=== PATIENT | female | born 2000 | race Hispanic/Latino ===

== ENCOUNTER → 2020-09-27 12:53 | Outpatient (CLI) | payer OTHER, MEDICAID, SELFPAY ==
[2020-09-27 13:32] LABS: Appearance Urine UA CLOUDY; Bilirubin Urine UA NEGATIVE (NEGATIVE); Color Urine UA YELLOW; Glucose Urine UA NEGATIVE (Negative); Ketones Urine UA NEGATIVE (NEGATIVE); Leukocyte Esterase Urine UA NEGATIVE (NEGATIVE); Nitrite Urine UA NEGATIVE (Negative); Occult Blood Urine UA TRACE-LYSED (Negative); Protein Urine UA NEGATIVE (Negative); Urobilinogen Urine UA 0.2 E.U./dL (0.2)
[2020-09-27 13:33] LABS: Add Manual Diff / Slide Review NO; Basophils Absolute Auto 0 /uL (0-100); Basophils Percent Auto 0.3 % (0-2); Eosinophils Absolute Auto 0 /uL (0-450); Eosinophils Percent Auto 0.4 % (2-4); Hematocrit 37.2 % (36-46); Hemoglobin 12.1 g/dL (12.0-16.0); Lymphocytes Absolute Auto 2000 /uL (1100-4500); Lymphocytes Percent Auto 16.7 % (25-40); Mean Corpuscular HGB Conc 32.4 % (30-36); Mean Corpuscular Hemoglobin 27.1 PG (26-34); Mean Corpuscular Volume 83.6 fL (80-100); Monocytes Absolute Auto 600 /uL (0-900); Monocytes Percent Auto 4.9 % (3-14); Neutrophils Absolute Auto 9300 /uL (1500-7000); Neutrophils Percent Auto 77.7 % (50-75); Platelet Count 465 X10^3/uL (150-400); Red Blood Cell Count 4.46 X10^6/uL (4.0-5.2); Red Cell Distribution Width 13.2 % (11.6-14.8)
[2020-09-27 16:30] LABS: HIV 1 & 2 Ab/Ag 4th Gen Combo NEGATIVE (NEGATIVE); Hep C Virus Ab w/Reflex Quant NEGATIVE s/c (NEGATIVE); Hepatitis B Surface Antigen NEGATIVE s/c (NEGATIVE); Rubella Antibody IgG 17.9 IU/mL (>15)
[2020-09-28 05:40] LABS: RPR Screen Non Reactive (Non Reactive)
[2020-09-28 08:28] LABS: Varicella IgG Antibody <135 index (Immune >165)
== END ==
PROVIDERS: PCP Family Medicine; Referring Provider Family Medicine; Visit Provider Family Medicine
DX: Z34.01 Encounter for supervision of normal first pregnancy, first trimester (principal)
CPT/HCPCS: 36415; 80055; 81003; 86787; 86803; 86850; 86900; 86901; 87077; 87086; 87389

== ENCOUNTER 2020-10-08 20:38 | Emergency (ER) | payer OTHER, MEDICAID, SELFPAY ==
[2020-10-08 20:43] VITALS: BP 131/82; PULSE 106; RESP 20; TEMP 37.1; O2SAT 99
[2020-10-08] MEDS: ONDANSETRON 4 MG ODT SL (20:54)
--- NOTE | 2020-10-08 21:38 | ED_ITS ---
HPI - Nausea/Vomiting/Diarrhea General Chief complaint: Nausea/Vomiting/Diarrhea Stated complaint: 11 WKS UNABLE TO KEEP THINGS DOWN Time Seen by Provider: 10/08/20 20:49 Source: patient Mode of arrival: Ambulatory History of Present Illness HPI Narrative: Otherwise healthy 20-year-old at 11 weeks gestation with nausea and vomiting . She notes that it has been consistent throughout her that she has been able to control it for the most part with natural remedies. She notes that she has lost 2-3 lb over the last 2 weeks. She comes in today with increased nausea. She has not yet tried any prescriptio n anti emetics. She reports no fevers, cough, chills, abdominal pain or pelvic cramping, no diarrhea. She notes that occasionally she does feel a bit orthostatic if she stands up too fast Related Data Home Medications Medication Instructions Recorded Confirmed prenat.vits,roderick,[id number] 1 tab PO DAILY 09/25/20 09/27/20 Previous Rx's Medication Instructions Recorded amoxicillin 875 mg tablet 875 mg PO BID #10 tab 10/01/20 ondansetron 4 mg PO Q8H PRN #14 tab 10/08/20 Allergies Allergy/AdvReac Type Severity Reaction Status Date / Time No Known Drug Allergies Allergy Verified 09/27/20 11:57 Review of Systems Review of Systems ROS Unobtainable: All systems reviewed & are unremarkable except as noted in HPI and below Patient History Medical History Anemia Surgical History No history of previous surgery Family History Mother No problems noted. Father No problems noted. Grandmother No problems noted. Grandfather No problems noted. Grandmother No problems noted. Grandfather Liver problem Alcohol abuse Brother No problems noted. Sister No problems noted. 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 Able to give a complete and coherent history. Well-nourished well-developed HEENT: Moist mucous membranes, normal sclera with reactive pupils, Respiratory: Lungs are clear to auscultation, no wheezing no rales no rhonchi. Full and symmetrical air movement Cardiac: Regular rate and rhythm no murmurs no bruits Abdomen: Soft, nontender, good bowel tones, no flank pain Skin: Warm and dry, no rashes Neurologic: Grossly neurologically intact with no obvious asymmetries or abnormalities Extremities: No trauma, well perfused Psych: Cooperative, appropriate insight and affect Initial Vital Signs Initial Vital Signs: Vital Signs Temperature 98.7 F 10/08/20 20:43 Pulse Rate 106 H 10/08/20 20:43 Respiratory Rate 20 10/08/20 20:43 Blood Pressure 131/82 10/08/20 20:43 Pulse Oximetry 99 10/08/20 20:43 Course Orders Ordered: Discontinued Medications Ondansetron HCl (Ondansetron 4 Mg Odt) 4 mg SL NOW ONE Stop: 10/08/20 20:51 Last Admin: 10/08/20 20:54 Dose: 4 mg Documented by: URBANO Ondansetron HCl (Ondansetron 4 Mg Odt Prepack) 1 bottle MIS SEEINSTR ONE Stop: 10/08/20 21:35 Vital Signs Vital signs: Vital Signs - 8 hr 10/08/20 20:43 Temperature 98.7 F Pulse Rate 106 H Respiratory Rate 20 Blood Pressure 131/82 Pulse Oximetry [address] [facility] - Nausea/Vomiting/Diarrhea Medical Records Attestation: I reviewed the patient's medical records. Lab Data Attestation: I reviewed the patient's lab results. [facility] Narrative Medical decision making narrative: 20-year-old at 11 weeks with nausea and vomiting of . No fevers no dysuria no other concerning symptoms. Her natural remedies are not enough to control her nausea and she is feeling dehydrated this evening. She is given a dose of sublingual ondansetron with significant relief of her nausea and is able to keep down full glass of water in feels that she can eat when she gets home. There is no signs of hemodynamic instability or infection at this time. She is safe for home discharge Discharge Plan Departure Patient Disposition: Home Clinical Impression: Nausea and vomiting during Instructions: DI for Nausea -- Adult Activity Restrictions/Additional Instructions: Thank you for coming in today With a dose of anti nausea medicine, your symptoms were able to be controlled in you were able to keep water down. You are doing all of the right things with using natural alternatives to try and help with your nausea. When things get as bad as they were tonight, it is okay to use Zofran/ondansetron to control the nausea. A prescription for this has been electronically transmitted to [facility] in [place] for you to excelsior picker tomorrow. When you have periods during the day that you are feeling well, make sure you take advantage of that eat and drink. If you have uncontrolled vomiting, pelvic cramping, vaginal bleeding fevers or other new or concerning symptoms, please feel free to return to the emergency department I wish you the very best with your . Prescriptions: New ondansetron 4 mg tablet,disintegrating 4 mg PO Q8H PRN (Reason: nausea and vomiting) Qty: 14 RF: 0 No Action amoxicillin 875 mg tablet 875 mg PO BID Qty: 10 RF: 0 prenat.vits,roderick,[id number] Tablet 1 tab PO DAILY RF: 0 Referrals: Og Mendoza MD [Primary Care Provider] -
[2020-10-08] MEDS: ONDANSETRON 4 MG ODT PREPACK 1 BOTTLE MISC (21:41)
== END 2020-10-08 21:43 | disposition home or self-care (01) ==
PROVIDERS: Emergency Provider Emergency Medicine; PCP Family Medicine
DX: O21.9 Vomiting of pregnancy, unspecified (principal); Z3A.11 11 weeks gestation of pregnancy
CPT/HCPCS: 99281; 99282

== ENCOUNTER → 2020-12-03 10:29 | Outpatient (CLI) | payer OTHER, MEDICAID, SELFPAY ==
--- NOTE | 2020-12-03 | DI.US.S_ITS ---
PROCEDURE: US OB >= 14 WEEKS FETUS INDICATIONS: anatomic survey OUTSIDE/PRIOR DATING DATA: Last menstrual period (LMP): 07/21/20. LMP-based estimated date of delivery (RAZ): 04/27/21 . First dating scan (date and location): This study . Estimated date of delivery (RAZ) from first dating scan: 04/24/21 . TECHNIQUE: Real-time scanning was performed of the fetus, with image documentation and biometric measurements. Endovaginal scanning: Not needed. COMPARISON: None. FINDINGS: General: A single living intrauterine gestation is present. Presentation: Breech.. Placenta: Placental position is posterior , without previa. Lower placental edge 2 cm or less from internal cervical os qualifies as low lying placenta. Amniotic fluid index: 11.0 cm, normal range is 5-24 cm. heart rate: 147 beats per minute. Maternal cervical canal: 4.3 cm long. Normal lower limit is 2.5 cm. biometrics: Biparietal diameter: 4.5 cm, 19 weeks 4 days Head circumference: 17.0 cm, 19 weeks 4 days Abdominal circumference: 14.6 cm, 19 weeks 6 days Femur length: 3.2 cm, 19 weeks 6 days Estimated gestational age from initial scan: 19 weeks 5 days Composite gestational age from present scan: 19 weeks 5 days Estimated weight and percentile: 317 g, 78th percentile Measurement variability for biometric dating: +/- 7 days from 14 weeks to 15 weeks 6 days gestation, +/- 10 days from 16 weeks to 21 weeks 6 days gestation, +/- 2 weeks from 22 weeks to 27 weeks 6 days gestation, +/- 3 weeks for 28 weeks gestation or later. weight reference: 4500 g or EFW >90/95% is considered macrosomia or large for gestational age. EFW <10% is small for gestational age. EFW 5% or less is considered intra-uterine growth restriction. Anatomic survey: Neuro: Ventricles are non-dilated at less than 10 mm. Cisterna magna is normal at 3-11 mm. Cerebellum is normal in size and morphology. Nuchal skin fold: Normal at less than 6 mm between 14-21 weeks gestational age. Face: Nose and lips, facial profile are normal. Spine: No evidence for spina bifida. Heart: 4-chambered heart is present, with normal ventricular outflow tracts. Diaphragm: Diaphragm is intact. Stomach: Left-sided stomach is present. Kidneys: No hydronephrosis. Normal is less than 5 mm in 2nd trimester, less than 7 mm in 3rd trimester. Cord: 3-vessel cord has orthotopic insertion. Bladder: Normal in size. Extremities: All 4 extremities identified. IMPRESSION: Appropriate interval growth, no anomaly seen. The delivery date is projected to be centered on 04/24/21. Dictated by: Jonathan Marks M.D. on 12/03/2020 at 14:50 Approved by: Jonathan Marks M.D. on 12/03/2020 at 14:54
== END ==
PROVIDERS: PCP Family Medicine; Referring Provider Family Medicine; Visit Provider Family Medicine
DX: Z34.02 Encounter for supervision of normal first pregnancy, second trimester (principal); Z3A.19 19 weeks gestation of pregnancy
CPT/HCPCS: 76811

== ENCOUNTER → 2021-02-14 10:10 | Outpatient (CLI) | payer OTHER, MEDICAID, SELFPAY ==
[2021-02-14 12:53] LABS: Add Manual Diff / Slide Review NO; Basophils Absolute Auto 0 /uL (0-100); Basophils Percent Auto 0.3 % (0-2); Eosinophils Absolute Auto 100 /uL (0-450); Eosinophils Percent Auto 0.8 % (2-4); Hematocrit 34.7 % (36-46); Hemoglobin 11.2 g/dL (12.0-16.0); Lymphocytes Absolute Auto 2200 /uL (1100-4500); Mean Corpuscular HGB Conc 32.3 % (30-36); Mean Corpuscular Hemoglobin 27.7 PG (26-34); Mean Corpuscular Volume 85.9 fL (80-100); Monocytes Absolute Auto 700 /uL (0-900); Monocytes Percent Auto 6.2 % (3-14); Neutrophils Absolute Auto 8100 /uL (1500-7000); Neutrophils Percent Auto 72.7 % (50-75); Platelet Count 458 X10^3/uL (150-400); Red Blood Cell Count 4.03 X10^6/uL (4.0-5.2); Red Cell Distribution Width 13.4 % (11.6-14.8); White Blood Cell Count 11.1 X10^3/uL (4.5-11.0)
[2021-02-14 13:15] LABS: GTT (PREG) 1 Hour PP 50gm Dose 79 mg/dL (76-139)
== END ==
PROVIDERS: PCP Family Medicine; Referring Provider Family Medicine; Visit Provider Family Medicine
DX: Z34.90 Encounter for supervision of normal pregnancy, unspecified, unspecified trimester (principal)
CPT/HCPCS: 36415; 82950; 85025

== ENCOUNTER 2021-03-05 09:21 | Outpatient (CLI) | payer OTHER, MEDICAID, SELFPAY ==
[2021-03-05 10:52] LABS: Bacteria Urine None Seen; RBC Urine None Seen (0-5/HPF); WBC Urine None Seen (0-5/HPF)
[2021-03-05 10:54] LABS: Appearance Urine UA CLEAR; Bilirubin Urine UA NEGATIVE (NEGATIVE); Color Urine UA YELLOW; Glucose Urine UA NEGATIVE (Negative); Ketones Urine UA NEGATIVE (NEGATIVE); Leukocyte Esterase Urine UA NEGATIVE (NEGATIVE); Nitrite Urine UA POSITIVE (Negative); Occult Blood Urine UA NEGATIVE (Negative); Protein Urine UA NEGATIVE (Negative); Specific Gravity Urine UA <=1.005 (1.000-1.035); Urobilinogen Urine UA 0.2 E.U./dL (0.2)
[2021-03-05 11:22] LABS: Culture Indicated Urine Specimen Cultured
--- NOTE | 2021-03-05 12:03 | PM.OBTRLD ---
Visit Information Visit Information Date of evaluation: 03/05/21 Primary OB Provider: Og Mendoza On-call OB Provider: Myron Menjivar Reason for Evaluation: Yes other Comments/Additional reasons for admission: 20 yo G1 at 32+3 weeks EGA who presets with a 2-3 day history of intermittent LUQ pain aggravated by certain movements which results in a pain so sharp and severe it makes it difficult for her to breathe. No CVAT or flank pain. No UTI symptoms but she did have a UTI early in this . She states her baby is active, denies contractions, fluid PV, bleesing, or change in avginal discharge. [facility] Medical History Anemia Surgical History No history of previous surgery Family History Mother No problems noted. Father No problems noted. Grandmother No problems noted. Grandfather No problems noted. Grandmother No problems noted. Grandfather Liver problem Alcohol abuse Brother No problems noted. Sister No problems noted. 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) occupational status: unemployed current occupational exposures/hazards: No christophe/jehovah's witness: Tenriism special christophe needs: No Smoking Status: Never smoker second hand exposure: No alcohol intake: former (pre- : very rare use) substance use type: does not use Review of Systems Review of Systems ROS: Yes All systems reviewed with the patient and are negative except as otherwise documented Exam Const General: cooperative, healthy appearing and comfortable Nutritional Appearance: average body habitus Orientation: alert and oriented x3 HENMT Head: normocephalic and atraumatic Ears: hearing grossly normal bilaterally Eyes Alignment and Position: alignment normal Conjunctivae: conjunctivae normal Sclera: sclerae normal EOM: EOM intact bilaterally GI Inspection: normal to inspection and other (Gravid contour, FH c/w EGA) Palpation: soft, no hepatosplenomegaly and tender (Marked tenderness at left CC junction T7 and 8; duplicates pain) General: other (Deferred) Psych Appearance: grossly normal Mental Status: mental status grossly normal Speech and Movement: speech and movement normal Mood: congruent mood Attitude: cooperative Thought Process: normal Thought Content: normal Judgment: judgment good Objective Labs Labs: Laboratory Results - last 24 hr 03/05/21 10:20 Urine Color Yellow Urine Appearance Clear Urine pH 7.0 Ur Specific Vest <=1.005 Urine Protein Negative Urine Glucose (UA) Negative Urine Ketones Negative Urine Occult Blood Negative Urine Nitrate Positive H Urine Bilirubin Negative Urine Urobilinogen 0.2 Ur Leukocyte Esterase Negative Urine RBC None seen Urine WBC None seen Urine Bacteria None seen Ur Culture Indicated? Specimen cultured Evaluation Evaluation Baseline heart rate: 135 Variability: Average (6-10) monitor accelerations: Present Monitor Decelerations: Absent Category of Tracing: Reactive Status: Category l Laboratory results: Laboratory Tests 03/05/21 10:20 Urine Color Yellow Urine Appearance Clear Urine pH 7.0 Ur Specific Vest <=1.005 Urine Protein Negative Urine Glucose (UA) Negative Urine Ketones Negative Urine Occult Blood Negative Urine Nitrate Positive H Urine Bilirubin Negative Urine Urobilinogen 0.2 Ur Leukocyte Esterase Negative Urine RBC None seen Urine WBC None seen Urine Bacteria None seen Ur Culture Indicated? Specimen cultured Diagnosis, Plan/Disposition Final Diagnosis (1) Costochondral separation: Status: Acute Problem details: Avoid certain postures /positions /movements which will aggravate the pain. Reassured that this pain does not represent a problem with her lungs but rather with her ribcage. Also advised the patient that the pain will continue most likely through the duration of the and the relieved only after the healing process following delivery. PRN Tylenol for costochondral pain. (2) LUQ pain: Status: Acute Problem details: See above. (3) UTI (urinary tract infection) in in third trimester: Status: Acute Problem details: Presumptive diagnosis due to large nitrites in her urine. Culture pending. Will initiate Macrobid 1 p.o. b.i.d. x7 days and re-evaluate antibiotic selection once culture results are known. Plan/Disposition OB Disposition: home
== END 2021-03-05 12:00 | disposition home or self-care (01) ==
LOC: LABOR 12:29 → OB 03-06 11:35
PROVIDERS: PCP Family Medicine; Referring Provider Family Medicine; Visit Provider Family Medicine
DX: O26.893 Other specified pregnancy related conditions, third trimester (principal); S23.29XA Dislocation of other parts of thorax, initial encounter; O23.43 Unspecified infection of urinary tract in pregnancy, third trimester; Z3A.32 32 weeks gestation of pregnancy
CPT/HCPCS: 59025; 81001; 87086; G0378; G0379

== ENCOUNTER → 2021-04-03 11:12 | Outpatient (CLI) | payer OTHER, MEDICAID, SELFPAY ==
[2021-04-05 13:47] LABS: Strep Grp B PCR NEG for Grp B Strep
== END ==
PROVIDERS: PCP Family Medicine; Referring Provider Family Medicine; Visit Provider Family Medicine
DX: Z34.90 Encounter for supervision of normal pregnancy, unspecified, unspecified trimester (principal); Z3A.36 36 weeks gestation of pregnancy
CPT/HCPCS: 87653

== ENCOUNTER 2021-04-14 14:36 | Observation (INO) | payer OTHER, MEDICAID, SELFPAY ==
--- NOTE | 2021-04-14 16:58 | P.TNLD_ITS ---
Visit Information Visit Information Date of evaluation: 04/14/21 Primary OB Provider: Og Mendoza On-call OB Provider: Heidi Mahan Reason for Evaluation: Yes rule out labor Comments/Additional reasons for admission: 20yo at 38w1d here with painful contractions starting earlier today. No LOF or vaginal bleeding. Feeling baby move regularly. [facility] Medical History Anemia Surgical History No history of previous surgery Family History Mother No problems noted. Father No problems noted. Grandmother No problems noted. Grandfather No problems noted. Grandmother No problems noted. Grandfather Liver problem Alcohol abuse Brother No problems noted. Sister No problems noted. 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[employer]) occupational status: unemployed current occupational exposures/hazards: No christophe/baptism: Church special christophe needs: No Smoking Status: Never smoker second hand exposure: No alcohol intake: former (pre- : very rare use) substance use type: does not use Evaluation Evaluation Baseline heart rate: 130 Variability: Moderate (11-25) monitor accelerations: Present Monitor Decelerations: Absent Contraction Frequency (minutes): 4 Uterine Contraction Intensity: Mild Status: Category l Cervical dilation (cm): 2 Cervical effacement (%): 90 station: -2 Diagnosis, Plan/Disposition Final Diagnosis (1) False labor: Status: Acute (2) 38 weeks gestation of : Status: Acute Plan/Disposition Plan: 20yo at 38w2d here with contractions. No cervical change in over an hour. Reactive monitoring. Safe for d/c home. OB Disposition: home
== END 2021-04-14 17:00 | disposition home or self-care (01) ==
PROVIDERS: Admitting Provider Family Medicine; PCP Family Medicine; Referring Provider Family Medicine; Visit Provider Family Medicine
DX: O47.1 False labor at or after 37 completed weeks of gestation (principal); Z3A.38 38 weeks gestation of pregnancy
CPT/HCPCS: 59025; G0378; G0379

== ENCOUNTER 2021-04-14 18:19 | Observation (INO) | payer OTHER, MEDICAID, SELFPAY ==
[2021-04-14] MEDS: hydrOXYzine 50 MG/ML INJ IM (19:57)
[2021-04-14] MEDS: MORPHINE 4 MG/ML INJ IM (19:58)
--- NOTE | 2021-04-14 21:31 | PM.OBTRLD ---
Visit Information Visit Information Date of evaluation: 04/14/21 Primary OB Provider: Og Mendoza On-call OB Provider: Heidi Mahan Reason for Evaluation: Yes rule out labor Comments/Additional reasons for admission: 20yo at 38w1d here due to painful contractions. Pt reports contractions minimally more uncomfortable than at presentation earlier today. Mild vaginal spotting as well. No LOF, feeling baby move regularly. [facility] Medical History Anemia Surgical History No history of previous surgery Family History Mother No problems noted. Father No problems noted. Grandmother No problems noted. Grandfather No problems noted. Grandmother No problems noted. Grandfather Liver problem Alcohol abuse Brother No problems noted. Sister No problems noted. 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) occupational status: unemployed current occupational exposures/hazards: No christophe/oriental orthodox: Mandaeism special christophe needs: No Smoking Status: Never smoker second hand exposure: No alcohol intake: former (pre- : very rare use) substance use type: does not use Evaluation Evaluation Baseline heart rate: 145 Variability: Moderate (11-25) monitor accelerations: Present Monitor Decelerations: Absent Contraction Frequency (minutes): 2 Uterine Contraction Intensity: Mild Status: Category l Cervical dilation (cm): 2 Cervical effacement (%): 80 station: -3 Diagnosis, Plan/Disposition Final Diagnosis (1) 38 weeks gestation of : Status: Acute (2) False labor: Status: Acute Plan/Disposition Plan: 20yo at 38w1d here with regular contractions, not yet causing any cervical change. Due to pt discomfort, morphine and vistaril given to allow her to sleep tonight. Stable for d/c home. Discussed return precautions. OB Disposition: home
== END 2021-04-14 20:53 | disposition home or self-care (01) ==
LOC: LABOR 18:21
PROVIDERS: Admitting Provider Family Medicine; PCP Family Medicine; Referring Provider Family Medicine; Visit Provider Family Medicine
DX: O47.1 False labor at or after 37 completed weeks of gestation (principal); Z3A.38 38 weeks gestation of pregnancy
CPT/HCPCS: 59025; 59050; 96372; G0378; G0379; J2270; J3410

== ENCOUNTER 2021-04-15 02:54 | Inpatient (IN) | payer OTHER, MEDICAID, SELFPAY ==
--- NOTE | 2021-04-15 04:32 | PM.AN.REGBLK ---
Regional Block Pre-procedure Procedure: Continuous Lumbar Epidural for L&D Attending OB provider: Heidi Mahan PMH/ROS narrative: Hx: No personal or family history of anesthesia problems. PSH/Anesthesia history narrative: none Exam narrative: MP1, RRR, CTAB ASA Class: II Medications: Current Medications Generic Name Dose Route Start Last Admin Trade Name Freq PRN Reason Stop Dose Admin Carboprost Tromethamine 250 mcg 04/15/21 03:44 Carboprost 250 Mcg/Ml Ampul IM Q90M PRN Bleeding Fentanyl 50 mcg 04/15/21 03:44 Fentanyl 100 Mcg/2 Ml Inj IV Q1H PRN Pain, Moderate (4-6) Lactated Ringer's 1,000 mls @ 100 mls/hr 04/15/21 03:45 Lactated Ringers IV CONT CATALINA Oxytocin/Lactated Ringer's 30 unit in 500 mls @ 200 mls/hr 04/15/21 03:44 Oxytocin Premix IV CONT PRN Bleeding Protocol Tranexamic Acid 1,000 mg/ 100 mls @ 200 mls/hr 04/15/21 03:44 Sodium Chloride IV NOW PRN Bleeding Methylergonovine Maleate 0.2 mg 04/15/21 03:44 Methylergonovine 0.2 Mg Tablet PO Q6HR PRN Heavy Bleeding Methylergonovine Maleate 0.2 mg 04/15/21 03:44 Methylergonovine 0.2 Mg/Ml Vial IM NOW PRN Bleeding Misoprostol 800 mcg 04/15/21 03:44 Misoprostol 200 Mcg Tablet TN NOW PRN Bleeding Misoprostol 1,000 mcg 04/15/21 03:44 Misoprostol 200 Mcg Tablet TN NOW PRN Bleeding Misoprostol 400 mcg 04/15/21 03:44 Misoprostol 200 Mcg Tablet SL NOW PRN Bleeding Naloxone HCl 0.2 mg 04/15/21 03:44 Naloxone 0.4 Mg/Ml Vial IV Q2MIN PRN Opiate Reversal Ondansetron HCl 4 mg 04/15/21 03:44 Ondansetron 4 Mg/2 Ml Inj IV Q4HR PRN Nausea And Vomiting Oxytocin 10 unit 04/15/21 03:44 Oxytocin 10 Unit/Ml Vial IM NOW PRN Bleeding Allergies: Allergies Allergy/AdvReac Type Severity Reaction Status Date / Time No Known Drug Allergies Allergy Verified 03/20/21 10:48 Procedure Insertion date: 04/15/21 Insertion time: 04:19 Prep/Local: betadine x3 (chloroprep) and 1% lidocaine Interspace: L3-4 Patient position: sitting Needle: 18 gauge Yordan Loss of resistance with: saline ROSA at (cm): 6 Catheter placed at SKIN (cm): 11 Catheter in SPACE (cm): 5 Insertion: Yes CSF Initial Medications TEST DOSE time: 04:19 TEST DOSE: 1.5% lidocaine with epinephrine 1:200k (mL): 5 BOLUS DOSE time: 04:20 BOLUS DOSE (mL): 2 BOLUS DOSE med: other (10mcg fentanyl intrathecally in a needle through needle technique, 90mcg fentanyl via epidural catheter) Infusion INFUSION: 0.0625% bupivacaine and with fentanyl 2 mcg/mL Initial rate (mL/hr): 12 Subsequent interventions: First pass, L3-4, loss at 6cm, (+) paresthesia right knee with dural puncture and no CSF. Patient re-positioned and needle redirected with good result. Post-procedure Anesthesia time START: 03:53 Anesthesia time END: 13:10 Post-procedure Anesthesia Assessment: No Anesthesia complications
[2021-04-15 04:55] LABS: Add Manual Diff / Slide Review NO; Basophils Absolute Auto 100 /uL (0-100); Basophils Percent Auto 0.4 % (0-2); Eosinophils Absolute Auto 0 /uL (0-450); Eosinophils Percent Auto 0.1 % (2-4); Hematocrit 33.3 % (36-46); Hemoglobin 10.9 g/dL (12.0-16.0); Lymphocytes Absolute Auto 1700 /uL (1100-4500); Lymphocytes Percent Auto 10.2 % (25-40); Mean Corpuscular HGB Conc 32.7 % (30-36); Mean Corpuscular Hemoglobin 27.3 PG (26-34); Mean Corpuscular Volume 83.4 fL (80-100); Monocytes Absolute Auto 600 /uL (0-900); Monocytes Percent Auto 3.9 % (3-14); Neutrophils Absolute Auto 14100 /uL (1500-7000); Neutrophils Percent Auto 85.4 % (50-75); Platelet Count 454 X10^3/uL (150-400); Red Cell Distribution Width 13.3 % (11.6-14.8); White Blood Cell Count 16.5 X10^3/uL (4.5-11.0)
--- NOTE | 2021-04-15 06:51 | PM.OBHP.1 ---
OB HPI Date/Time Date Patient Seen: 04/15/21 Time Patient Seen: 06:52 History of Present Condition Chief complaint: evalulation of labor : 1 Para: 0 Estimated Date of Delivery: 04/27/21 Estimated Gestational Age (weeks): 38 2/7 Narrative: Юлия Kiser is a 20 year old female G1 para 0 with a due date of 04/27/2021 consistent with LMP and early ultrasound. Patient presents to the labor and delivery floor with painful contractions. Patient states she started josiah about 1:00 a.m. Thursday morning. Contractions were intermittent sporadic and became more painful and progressed.. Patient was seen and evaluated in the labor and delivery floor was 1 cm. heart tones were reassuring. Patient was given some pain medication and discharged home. Patient was readmitted to the labor and delivery floor early this morning with increasing contractions. Good movement. Patient's vital signs were stable. heart tones were Aracely sure in with category 1 tracing. Patient was requesting an epidural which was provided. Epidurals provided good pain relief. She says she is feeling well at this time. No significant contraction pain. On my exam on the center. Her vital signs are stable afebrile category 1 tracing. She has dilated 6-7 cm 90% effaced 0 station baby's vertex position. Patient had routine care starting at 9 weeks. She had normal follow-up. During her she gained approximately 20 lb. care complications include mild anemia. She was taking vitamins during her . Patient declined quad screen during . She had normal 20 week ultrasound. History of Present care: good care Dating criteria: LMP confirmed by 1st trimester US Ultrasounds: normal 1st trimester US and normal mid trimester US Obstetrical complications: none Medical complications: none Preadmission Labs Blood type: O (+) positive -: Antibody screen: negative, Cystic fibrosis screen: unknown, GBS status: negative, HBsAG: negative, HIV: negative, HSV 1: unknown, HSV 2: unknown and RPR/VDLR: negative -: Chlamydia screen: not detected and Gonorrhea screen: not detected -: Rubella: immune and Varicella: not immune HCAB: negative PAP: Normal Integrated screen: Declined Sequential screen: Declined 3 hr GTT: 1 hr Fasting blood glucose: 79 Evaluation Evaluation Variability: Average (6-10) monitor accelerations: Present Monitor Decelerations: Absent Uterine Contraction Intensity: Moderate Category of Tracing: Reactive Status: Category l Cervical dilation (cm): 7 Cervical effacement (%): 90 station: 0 Laboratory results: Laboratory Tests 04/15/21 04/15/21 03:55 03:55 WBC 16.5 H RBC 4.00 Hgb 10.9 L Hct 33.3 L MCV 83.4 MCH 27.3 MCHC 32.7 RDW 13.3 Plt Count 454 H Neut % (Auto) 85.4 H Lymph % (Auto) 10.2 L [place] % (Auto) 3.9 Eos % (Auto) 0.1 L Baso % (Auto) 0.4 Neut # (Auto) 23038 H Lymph # (Auto) 1700 [place] # (Auto) 600 Eos # (Auto) 0 Baso # (Auto) 100 Blood Type O Positive Antibody Screen Negative Comments: Rupture of membranes clear fluid [facility] Medical History Anemia Surgical History No history of previous surgery Family History Mother No problems noted. Father No problems noted. Grandmother No problems noted. Grandfather No problems noted. Grandmother No problems noted. Grandfather Liver problem Alcohol abuse Brother No problems noted. Sister No problems noted. 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) occupational status: unemployed current occupational exposures/hazards: No christophe/congregational: Episcopalian special christophe needs: No Smoking Status: Never smoker second hand exposure: No alcohol intake: former (pre- : very rare use) substance use type: does not use Meds Home Medications and Allergies Home Medications Medication Instructions Recorded Confirmed Type prenat.vits,roderick,gwy-tkje-foeij 1 tab PO DAILY 09/25/20 03/20/21 History ondansetron HCl 4 mg tablet 4 mg PO Q8H PRN #14 tab 01/17/21 03/20/21 Rx (Zofran) Allergies Allergy/AdvReac Type Severity Reaction Status Date / Time No Known Drug Allergies Allergy Verified 03/20/21 10:48 Exam Vital Signs (past 8 hours): . General: Alert no apparent distress. Affect is appropriate. Josiah it is uncomfortable. HEENT: Neck is supple without lymphadenopathy pupils equal round and reactive. Cardio: S1-S2 regular rate and rhythm. Respiratory: Lungs clear to auscultation. Abdomen: Gravid. Extremities: Normal deep tendon reflexes trace edema. Objective Labs Result Diagrams: 04/15/21 03:55 Labs: Laboratory Results - last 24 hr 04/15/21 04/15/21 03:55 03:55 WBC 16.5 H RBC 4.00 Hgb 10.9 L Hct 33.3 L MCV 83.4 MCH 27.3 MCHC 32.7 RDW 13.3 Plt Count 454 H Neut % (Auto) 85.4 H Lymph % (Auto) 10.2 L [place] % (Auto) 3.9 Eos % (Auto) 0.1 L Baso % (Auto) 0.4 Neut # (Auto) 46902 H Lymph # (Auto) 1700 [place] # (Auto) 600 Eos # (Auto) 0 Baso # (Auto) 100 Blood Type O Positive Antibody Screen Negative Assessment and Plan Assessment and Plan Assessment and Plan narrative: 20-year-old G1 para 0 38 and 2 weeks gestational age in labor. Patient has an epidural. Rupture of membranes show clear fluid. Patient is approximately 7 cm dilated 0 station vertex position. GBS status is negative. Epidural is in place. Vital signs are stable she is afebrile. Labor orders are written for. Expectant management.
[2021-04-15 07:58] LABS: COVID19 - ADMIT (NP swab/PCR) Negative (Negative)
[2021-04-15] MEDS: LACTATED RINGERS 1,000 ML 100 ML IV (11:07)
[2021-04-15] MEDS: FENT 2MCG/ML BUPIV 0.125% EPI 200 MCG/100 ML PLAST..BAG 12 MCG EPIDURAL (12:47)
[2021-04-15] MEDS: OXYTOCIN PREMIX 30 UNIT/500 ML PLAST..BAG 200 UNIT IV (13:13)
--- NOTE | 2021-04-15 13:28 | PM.OBPRVD ---
Labor & Delivery Delivery date: 04/15/21 Intrapartal Events: None Cervical ripening method: none Induction method: none Delivery augmentation: rupture of membranes Delivery monitor: external FHT Route of delivery: L&D Laceration Description: Perineal - 2nd Degree Delivery repair: chromic Estimated blood loss (mL): 250 Anesthesia Type: Epidural Narrative: Stage I of labor approximately 8 hours: Patient was admitted to the labor and delivery floor at 4 cm dilated josiah regularly vital signs were stable she was afebrile GBS status is negative. heart tones were reassuring for baby. Patient continued continued to contract regularly and received a epidural for pain relief patient had excellent pain control after the epidural. Patient continued to contract regularly and then dilated to 6-7 cm. That point she had amniotomy of clear fluid. Baby then progressed from 6-7 cm to complete without difficulty. There was no Pitocin augmentation of her labor. heart tracings were category 1 category 2. Patient's GBS status was negative. COVID test was negative. Blood pressure was stable throughout she was afebrile. Stage II of labor 30 minutes category 1 category 2 tracing. Mom pushed to deliver over an intact perineum a viable male infant. Mom had excellent pushing and good anesthesia results during stage II of labor. Patient had some variable and early decelerations with stage II of labor consistent with head compression. Baby made good progress and descent through the canal to complete. After the delivery of the head there was no nuchal cord and baby delivered spontaneously on to mother's abdomen. Baby had immediate cry. There was no nuchal cord baby was born and delivered in the occiput anterior position. There is no use of VAC is and no a PCI to me. Stage III of labor. Delivery of intact placenta with three-vessel cord at approximately 10 minutes after the delivery of the baby. Mom and baby were doing well. We repaired a second-degree midline perineal laceration with 2 0 chromic suture in the usual fashion. Blood loss was approximately 250 cc. Mom's vital signs were stable throughout bleeding was anticipated and baby was vigorous.
[2021-04-15] MEDS: IBUPROFEN 600 MG TABLET PO ×2 (14:56→21:16)
[2021-04-15] MEDS: ACETAMINOPHEN 325 MG TABLET 650 MG PO (21:15)
[2021-04-15] MEDS: DERMOPLAST SPRAY 20% 60 ML 1 SPRAY TOP (21:15)
[2021-04-16] MEDS: IBUPROFEN 600 MG TABLET PO ×2 (04:31→10:38)
[2021-04-16] MEDS: ACETAMINOPHEN 325 MG TABLET 650 MG PO ×2 (04:31→10:39)
[2021-04-16 06:27] LABS: Hematocrit 31.3 % (36-46); Hemoglobin 10.4 g/dL (12.0-16.0)
[2021-04-16] MEDS: PRENATAL VIT,CALC/IRON/FOLIC 1 TABLET 1 TAB PO (09:08)
[2021-04-16] MEDS: DOCUSATE 100 MG CAPSULE PO (09:08)
[2021-04-16 10:38] VITALS: TEMP 36.3
[2021-04-16 10:39] VITALS: TEMP 36.3
--- NOTE | 2021-04-16 12:47 | PM.PN.1 ---
Subjective Subjective Date Patient Seen: 04/16/21 Time Patient Seen: 08:00 Interval history: Patient did well overnight. Mild abdominal cramping. Pain well controlled with ibuprofen Tylenol. Tolerating diet up ambulating. Said no problems with urination. No bowel movement. No headache blurry vision. Some mild swelling. Breast-feeding is going well. Exam Vital Signs (past 8 hours): - 04/16/21 10:38 04/16/21 10:39 Temperature 97.4 F L 97.4 F L Narrative Exam Narrative: General: Alert no apparent distress. Affect is appropriate. HEENT: Neck is supple without lymphadenopathy pupils equal round and reactive. Cardio: S1-S2 regular rate and rhythm. Respiratory: Lungs clear to auscultation. Abdomen: Uterus firm. Extremities: Normal deep tendon reflexes trace edema. Objective Labs Result Diagrams: 04/16/21 06:15 Labs: Laboratory Results - last 24 hr 04/16/21 06:15 Hgb 10.4 L Hct 31.3 L PFSH Medical History Anemia Surgical History No history of previous surgery Family History Mother No problems noted. Father No problems noted. Grandmother No problems noted. Grandfather No problems noted. Grandmother No problems noted. Grandfather Liver problem Alcohol abuse Brother No problems noted. Sister No problems noted. 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 Patient doing well. Hemoglobin hematocrit stable vital signs are stable ambulating. Mom is well. Pain is well controlled. No headache normal blood pressure. Bowel movement not yet urination is good bleeding is anticipated. Tolerating diet.
--- NOTE | 2021-04-16 13:18 | P.DS_ITS ---
History of Present Illness History of Present Illness Chief complaint: Labor & Delivery Discharge Providers Provider Date of admission: 04/15/21 02:54 Discharge Date: 04/16/21 Primary care physician: Og Mendoza MD Consults: 04/15/21 03:46 Consult to Anesthesiology Urgent Comment: Consulting Provider: Laura Cameron Reason for consultation: labor epidural 04/16/21 13:27 Consult to Manager Wellness Routine Comment: Discharge provider: Og Mendoza MD Summary Hospital Course Discharge Diagnosis: 20-year-old G1 para 038 and 2 7th weeks gestational age delivered male vaginally without complication Hospital Course: Patient arrived in Labor and delivery floor in active labor. Patient progressed nicely with category 1 category 2 tracing received an epidural. Had normal vital signs and blood pressure throughout labor process she delivered a healthy male with Apgars of 8 and 9 and weight 7 lb in the 9 oz. day 1 after delivery. Patient's hemoglobin hematocrit stable vital signs were stable she was afebrile she is ambulating. Patient had good pain control with ibuprofen. Breast-feeding was well established. She is tolerating her diet. Urination was stable no bowel movement by the time of discharge. Exam Vital Signs (past 8 hours): - 04/16/21 10:38 04/16/21 10:39 Temperature 97.4 F L 97.4 F L Objective Labs Result Diagrams: 04/16/21 06:15 Labs: Laboratory Results - last 24 hr 04/16/21 06:15 Hgb 10.4 L Hct 31.3 L PFSH Medical History Anemia Surgical History No history of previous surgery Family History Mother No problems noted. Father No problems noted. Grandmother No problems noted. Grandfather No problems noted. Grandmother No problems noted. Grandfather Liver problem Alcohol abuse Brother No problems noted. Sister No problems noted. 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) occupational status: unemployed current occupational exposures/hazards: No christophe/yarsani: Restorationist special christophe needs: No Smoking Status: Never smoker second hand exposure: No alcohol intake: former (pre- : very rare use) substance use type: does not use Discharge Plan Discharge Plan Patient Disposition: Home Discharge orders & Medications Prescriptions: New docusate sodium [DOK] 100 mg Capsule 100 mg PO DAILY Qty: 30 RF: 0 ibuprofen 600 mg Tablet 600 mg PO Q6HR PRN (Reason: Pain, Mild (1-3)) Qty: 30 RF: 0 Continued prenat.vits,roderick,rfu-nfeh-mzdgx Tablet 1 tab PO DAILY RF: 0 Discontinued ondansetron HCl [Zofran] 4 mg tablet 4 mg PO Q8H PRN (Reason: nausea and vomiting) Qty: 14 RF: 0 Follow up/Referrals: Og Mendoza MD [Primary Care Provider] - Visit Report/Discharge Packet Visit Report Forms: Patient Portal/API, Stroke Signs & Symptoms Discharge Data Primary Care Provider: Og Mendoza
== END 2021-04-16 15:22 | disposition home or self-care (01) | DRG 560 ==
PROVIDERS: Admitting Provider Family Medicine; PCP Family Medicine; Referring Provider Family Medicine; Visit Provider Family Medicine
DX: O99.02 Anemia complicating childbirth (principal); D64.9 Anemia, unspecified; Z3A.38 38 weeks gestation of pregnancy; Z37.0 Single live birth; O70.1 Second degree perineal laceration during delivery; Z20.822 Contact with and (suspected) exposure to COVID-19; O47.1 False labor at or after 37 completed weeks of gestation
CPT/HCPCS: 01967; 36415; 59025; 59050; 59409; 85014; 85018; 85025; 86850; 86900; 86901; 87635; 96372; C9803; G0378; G0379; J2270; J2590; J3410